=== PATIENT | female | born 1945 | race Hispanic/Latino ===

== ENCOUNTER 2019-02-08 10:51 | Outpatient (CLI) | payer MEDICARE ==
--- NOTE | 2019-02-12 08:30 | PET Report ---
PET/CT:02/08/19 10:51:00 CLINICAL: Breast cancer restaging. RADIOPHARMACEUTICAL: 12.714mCi F18-FDG. COMPARISON: 10/05/18 PET/CT TECHNIQUE- Following intravenous injection of F-18 FDG and an approximately 60 minute uptake period, CT and PET images from the mid skull to the upper thighs were acquired with the patient in the fasted state. No contrast was administered. The CT protocol used for this PET CT study is designed for attenuation correction and anatomic localization of PET abnormalities. This records coordinator CT is not desired to produce and cannot replace, [id number] diagnostic CT scans with specific imaging protocols for different body parts and indications. Plasma glucose at the time of this test: 117g/dl. The standardized uptake values (SUV) are normalized to patient body weight and indicate the highest activity concentration (SUV max) in a given disease site. FINDINGS: Brain--Physiologic FDG uptake in the visualized regions of the brain. Neck--Physiologic FDG uptake mucosal structures. The previously described FDG avid left spinal accessory lymph node measures 1.1 x 0.7 cm additionally the 2.6 compared to 1.4 x 1.0 cm and SUV 5.9. No other cervical lymphadenopathy. Chest--Physiologic FDG uptake in mediastinal blood pool and myocardium. Lungs--Multilobar FDG avid lung nodules have decreased in size with lower SUVs. Pleura/pericardium--No abnormal uptake. Thoracic nodes--No abnormal uptake. Decreased FDG uptake in bilateral hilar lymph nodes. Hepatobiliary--No abnormal uptake. Liver background SUV mean, as a reference for comparing FDG studies, is 4.1 compared to 3.7 on the last exam. No liver mass. Spleen--No abnormal uptake. Pancreas--No abnormal uptake. Adrenal Glands--No abnormal uptake. Kidneys/Ureters/Bladder--No abnormal uptake. Abdominopelvic Nodes--No abnormal uptake. Bowel/Peritoneum/Mesentery--No abnormal uptake. Pelvic organs--No abnormal uptake. Bones/Soft Tissues--Previously described mixed lytic and sclerotic bone lesions demonstrate increased sclerosis and several have become FDG avid. Several new skeletal lesions. The most prominent is at L2 with SUV 5.3. IMPRESSION- Mixed response to therapy with decrease size and decreased FDG uptake in lung nodules and decreased FDG uptake in mediastinal and cervical lymph nodes. However, new FDG uptake in skeletal lesions and several new skeletal lesions. No evidence of hepatic metastasis.
== END 2019-02-08 10:52 | disposition home or self-care (01) ==
LOC: PET 10:51
PROVIDERS: ATTEND Internal Medicine Hematology & Oncology
DX: C50.212 Malignant neoplasm of upper-inner quadrant of left female breast (principal); R59.9 Enlarged lymph nodes, unspecified; R73.09 Other abnormal glucose
CPT/HCPCS: 78815; 82962; A9552

== ENCOUNTER 2019-04-26 12:51 | Observation (INO) | payer MEDICARE ==
--- NOTE | 2019-04-26 13:11 | Emergency Department Report ---
Blank Doc - Documentation Documentation: 73 y o female was sent by PCP for positive blood clot of left lower extremity report pending
[2019-04-26 14:53] LABS: Hematocrit 35.2 % (30.3-42.9); Hemoglobin 12.1 gm/dl (10.1-14.3); Mean Corpuscular HGB Conc 34 % (30-34); Mean Corpuscular Volume 103 fl (79-97); Platelet Count 361 K/mm3 (140-440); Red Blood Count 3.43 M/mm3 (3.65-5.03); Red Cell Distribution Width 14.2 % (13.2-15.2)
[2019-04-26 15:04] LABS: BUN/Creatinine Ratio 11; Blood Urea Nitrogen 8 mg/dL (7-17); Calcium 8.5 mg/dL (8.4-10.2); Hemolysis Index 10
[2019-04-26 15:05] LABS: INR 1.01 (0.87-1.13)
[2019-04-26 15:06] LABS: Partial Thromboplastin Time 24.5 Sec. (24.2-36.6)
[2019-04-26 15:49] LABS: Total Cells Counted 100
[2019-04-26 15:50] LABS: Anisocytosis 1+; Ovalocytes Few; Tear Drop Cells Few
--- NOTE | 2019-04-26 16:06 | History and Physical Report ---
History of Present Illness Chief complaint: My leg in swollen History of present illness: 73 YO Female with HTN, Metastatic Breast Cancer presents to ED for evaluation. Pt states that she has experienced swelling in her left leg over the past 3 weeks, with persistent symptoms over the same time frame. Pt was seen and evaluated by her Dr. Baxter and sent to vascular lab for an outpatient study. Pt seen and evaluated and found to have evidence of extensive LLE DVT. Pt transported to [facility] via private vehicle. Pt seen and evaluated in ED and initiated on therapeutic anticoagulation. IR consulted in ED for evaluation for possible placement of IVC filter. Pt denies fever, chills, CP, Palpitations, NVD, Trauma, Prolonged travel/immobility, individual/family history of DVT/PE/Bleeding/Blood Clotting Disorders, hemoptysis, productive cough, skin rash or recent ill contacts. No prior admission for review. All listed m edication reconciled at time of admission. Past History Past Medical History: cancer, hypertension Past Surgical History: mastectomy Social history: . denies: smoking, alcohol abuse, prescription drug abuse Family history: no significant family history, other (reviewed) Medications and Allergies Allergies Allergy/AdvReac Type Severity Reaction Status Date / Time codeine AdvReac Nausea Verified 04/26/19 16:26 Review of Systems Constitutional: no weight loss, no weight gain, no fever, no chills Ears, nose, mouth and throat: no ear pain, no ear discharge, no tinnitis, no decreased hearing, no nose pain, no nasal congestion Breasts: no change in shape, no swelling, no mass Cardiovascular: no chest pain, no orthopnea, no palpitations, no rapid/irregular heart beat, no edema, no syncope, no lightheadedness Respiratory: no cough, no cough with sputum, no excessive sputum, no hemoptysis, no shortness of breath, no dyspnea on exertion Gastrointestinal: no abdominal pain, no nausea, no vomiting, no diarrhea, no constipation, no change in bowel habits, no hematemesis Genitourinary Female: no pelvic pain, no flank pain, no menorrhagia, no dysuria, no urinary frequency, no urgency, no stress incontinence, no incomplete emptying Rectal: no pain, no incontinence, no bleeding Musculoskeletal: other (Left calf swelling), no neck stiffness, no low back pain, no shooting leg pain, no redness of joints Integumentary: no rash, no pruritis, no redness, no sores, no wounds Neurological: no transient paralysis, no paralysis, no weakness, no parathesias, no tingling, no seizures, no syncope, no tremors Psychiatric: no anxiety, no memory loss, no change in sleep habits, no sleep disturbances, no hypersomnia, no change in appetite, no suicidal ideation, no disorientation Endocrine: no cold intolerance, no heat intolerance, no polyphagia, no polydipsia, no polyuria Hematologic/Lymphatic: no easy bruising, no easy bleeding Allergic/Immunologic: no urticaria, no allergic rhinitis, no wheezing Exam - Constitutional Vitals: Temp Pulse Resp BP Pulse Ox 80 16 123/67 99 04/26/19 15:14 04/26/19 15:14 04/26/19 15:08 04/26/19 15:08 General appearance: Present: no acute distress, well-nourished - EENT Eyes: Present: PERRL ENT: hearing intact, clear oral mucosa - Neck Neck: Present: supple, normal ROM - Respiratory Respiratory effort: normal Respiratory: bilateral: CTA - Cardiovascular Heart Sounds: Present: S1 & S2. Absent: rub, click - Extremities Extremities: pulses symmetrical Extremity abnormal: edema, tenderness, other (LLE edema, tenderness,) Peripheral Pulses: within normal limits - Abdominal General gastrointestinal: Present: soft, non-tender, non-distended, normal bowel sounds Female genitourinary: Present: normal - Integumentary Integumentary: Present: clear, warm, dry - Musculoskeletal Musculoskeletal: gait normal, strength equal bilaterally - Psychiatric Psychiatric: appropriate mood/affect, intact judgment & insight - Neurologic Neurologic: CNII-XII intact, moves all extremities Results - Labs CBC & Chem 7: 04/26/19 14:35 04/26/19 14:35 Labs: Abnormal lab results 04/26/19 04/26/19 Range/Units 14:35 14:35 WBC 2.8 L (4.5-11.0) K/mm3 RBC 3.43 L (3.65-5.03) M/mm3 MCV 103 H (79-97) fl MCH 35 H (28-32) pg Monocytes % (Manual) 10.0 H (0.0-7.3) % Basophils % (Manual) 2.0 H (0.0-1.8) % Seg Neutrophils # Man 1.7 L (1.8-7.7) K/mm3 Lymphocytes # (Manual) 0.7 L (1.2-5.4) K/mm3 Glucose 111 H (65-100) mg/dL Assessment and Plan - Patient Problems (1) Deep vein thrombosis (DVT) of left lower extremity Current Visit: Yes Status: Acute Qualifiers: Chronicity: acute Plan to address problem: Therapeutic anticoagualtion with eliquis first dose in ED, pain control, IR consulted regarding IVC Filter placement, (2) Breast cancer Current Visit: Yes Status: Acute Qualifiers: Laterality: unspecified laterality Plan to address problem: Oncology F/U as outpatient, present on admission (3) HTN (hypertension) Current Visit: Yes Status: Acute Qualifiers: Hypertension type: essential hypertension Qualified Code(s): I10 - Essential (primary) hypertension Plan to address problem: Monitor bp q shift, continue medical management. (4) DVT prophylaxis Current Visit: Yes Status: Acute Plan to address problem: therapeutic anticoagulation, hold scd to leg edema and pain.
[2019-04-26] MEDS ORDERED: TYLENOL PO PRN (16:07)
[2019-04-26] MEDS ORDERED: ZOFRAN IV PRN (16:07)
[2019-04-26] MEDS ORDERED: PROVENTIL IH PRN (16:07)
[2019-04-26] MEDS ORDERED: SODIUM CHLORIDE FLUSH SYRINGE 10 ML IV PRN (16:07)
--- NOTE | 2019-04-26 16:09 | Emergency Department Report ---
ED Lower Extremity HPI - General Chief Complaint: Extremity Problem,Nontraumatic Stated Complaint: L LEG EXTREMITY Time Seen by Provider: 04/26/19 13:03 Source: patient Mode of arrival: Ambulatory Limitations: No Limitations - History of Present Illness Initial Comments: Mrs. Venegas is a very pleasant 73 -year-old female with history of metastatic cancer and hypertension who presents with left leg swelling and pain for several weeks. She was sent from vascular lab. Preliminary review by stopperer assembler found DVT. I spoke with radiologist who gave me the report of extensive DVT from superficial femoral vein to calf. Also spoke with provider Ana from oncology office of Dr. Baxter. Mrs. Venegas presents chest pain and shortness of breath. Currently not Anticoagulation. She did recently have a brief course of anticoagulation after tumor resection from right leg in September. MD Complaint: other (left leg pain) Injury: Leg: Left Place: home Severity: mild Improves With: immobilization - Related Data Allergies Allergy/AdvReac Type Severity Reaction Status Date / Time codeine AdvReac Nausea Unverified 10/05/18 08:13 ED Review of Systems ROS: Stated complaint: L LEG EXTREMITY Other details as noted in HPI Comment: All other systems reviewed and negative Constitutional: denies: fever, malaise Respiratory: denies: cough, shortness of breath Cardiovascular: denies: chest pain ED Past Medical Hx - Past Medical History Previous Medical History?: Yes Additional medical history: Breast CA - Surgical History Past Surgical History?: Yes Additional Surgical History: double mastectomy - Social History Smoking Status: Former Smoker Substance Use Type: None ED Physical Exam - General Limitations: No Limitations General appearance: alert, in no apparent distress - Head Head exam: Present: atraumatic, normocephalic - Eye Eye exam: Present: normal appearance - ENT ENT exam: Present: mucous membranes moist - Neck Neck exam: Present: normal inspection, full ROM - Respiratory Respiratory exam: Present: normal lung sounds bilaterally. Absent: respiratory distress, wheezes, rales, rhonchi - Cardiovascular Cardiovascular Exam: Present: regular rate, normal rhythm, normal heart sounds. Absent: systolic murmur, diastolic murmur, rubs, gallop - GI/Abdominal GI/Abdominal exam: Present: soft, normal bowel sounds. Absent: distended, tenderness, guarding, rebound - Extremities Exam Extremities exam: Present: other (left leg slightly edematous, slightly larger than the right lower extremity, intact pedal pulses, no erythema, normal skin color) - Neurological Exam Neurological exam: Present: alert, oriented X3 - Psychiatric Psychiatric exam: Present: normal affect, normal mood - Skin Skin exam: Present: warm, dry, intact, normal color. Absent: rash ED Course Vital Signs 04/26/19 04/26/19 15:08 15:14 Pulse Rate 80 Respiratory 16 Rate Blood Pressure 123/67 O2 Sat by Pulse 99 Oximetry ED Lower Extremity MDM - Lab Data Result diagrams: 04/26/19 14:35 04/26/19 14:35 - Radiology Data Radiology results: report reviewed Left deep venous thrombosis, extensive from the superficial femoral vein to calf - Medical Decision Making Left deep venous thrombosis: I discussed case with our hospitalist staff. My colleaguerecommended hospitalization for therapeutic anticoagulation and consultation for IVC filter placement. Admitted in stable condition. I have also consulted with patient's personal oncologist service. Critical care attestation.: If time is entered above; I have spent that time in minutes in the direct care of this critically ill patient, excluding procedure time. ED Disposition Clinical Impression: Deep venous thrombosis of femoral vein, Acute deep vein thrombosis Disposition: OP ADMIT IP TO THIS HOSP Is pt being admited?: Yes Does the pt Need Aspirin: No Condition: Stable
[2019-04-26] MEDS: ELIQUIS PO SCH ×2 (17:13→22:18)
[2019-04-26] MEDS: SODIUM CHLORIDE FLUSH SYRINGE 10 ML IV SCH (22:20)
[2019-04-27 06:16] LABS: Hematocrit 29.9 % (30.3-42.9); Hemoglobin 10.8 gm/dl (10.1-14.3); Mean Corpuscular HGB Conc 36 % (30-34); Mean Corpuscular Volume 103 fl (79-97); Platelet Count 297 K/mm3 (140-440)
[2019-04-27 06:37] LABS: Alanine Aminotransferase 12 units/L (7-56); Albumin 3.6 g/dL (3.9-5); BUN/Creatinine Ratio 14; Blood Urea Nitrogen 10 mg/dL (7-17); Calcium 8.5 mg/dL (8.4-10.2); Hemolysis Index 4
[2019-04-27 07:18] LABS: RBC Morphology Normal; Total Cells Counted 100
[2019-04-27] MEDS: SODIUM CHLORIDE FLUSH SYRINGE 10 ML IV SCH (09:59)
[2019-04-27] MEDS: ELIQUIS PO SCH (09:59)
--- NOTE | 2019-04-27 14:27 | Consultation ---
History of Present Illness - Reason for Consult Consult date: 04/27/19 LLE DVT - History of Present Illness 73 YO Female with HTN, Metastatic Breast Cancer presents to ED for evaluation. Pt states that she has experienced swelling in her left leg over the past 3 weeks, with persistent symptoms over the same time frame. Pt was seen and evaluated by her Dr. Baxter and sent to vascular lab for an outpatient study. Pt seen and evaluated and found to have evidence of extensive LLE DVT. Pt transp orted to [facility] via private vehicle. Pt seen and evaluated in ED and initiated on therapeutic anticoagulation. IR consulted in ED for evaluation for possible placement of IVC filter. Pt denies fever, chills, CP, Palpitations, NVD, Trauma, Prolonged travel/immobility, individual/family history of DVT/PE/Bleeding/Blood Clotting Disorders, hemoptysis, productive cough, skin rash or recent ill contacts. No prior admission for review. All listed medication reconciled at time of admission. The patient reports swelling to the left lower extremity for the last 2-3 weeks with some mild discomfort in her calf. No evidence of foot ischemia. No precipitating causes. Patient does have advanced breast cancer. Palpable pedal pulses. No signs of foot ischemia. Mild left lower extremity edema. Past History Past Medical History: cancer, hypertension Past Surgical History: mastectomy Social history: . denies: smoking, alcohol abuse, prescription drug abuse Family history: no significant family history, other (reviewed) Medications and Allergies Allergies Allergy/AdvReac Type Severity Reaction Status Date / Time codeine AdvReac Nausea Verified 04/26/19 16:26 Home Medications Medication Instructions Recorded Confirmed Last Taken Type Cholecalciferol (Vitamin D3) 5,000 unit PO DAILY 04/26/19 04/26/19 04/25/19 History [Vitamin D3 5,000 UNIT] DULoxetine [Cymbalta] 30 mg PO QDAY 04/26/19 04/26/19 04/25/19 History Levothyroxine [Synthroid] 75 mcg PO QAM 04/26/19 04/26/19 04/25/19 History Losartan [Cozaar] 100 mg PO QDAY 04/26/19 04/26/19 04/25/19 History New Site-3S/Dha/Epa/Fish Oil [New Site-3 1 each PO DAILY 04/26/19 04/26/19 04/25/19 History Fish Oil 1,000 mg Sfgl] Palbociclib [Ibrance] 125 mg PO DAILY 04/26/19 04/26/19 04/26/19 22:25 History Palbociclib [Ibrance] 125 mg PO QDAY 04/26/19 04/26/19 04/25/19 History Turmeric/Turmeric Ext/Pepr Ext 1 each PO DAILY 04/26/19 04/26/19 04/25/19 History [[facility] Turmeric Complex 500 mg] Apixaban [Eliquis] 5 mg PO Q12HR #60 tablet 04/27/19 Unknown Rx Apixaban [Eliquis] 10 mg PO Q12HR #12 tablet 04/27/19 Unknown Rx Active Meds: Active Medications Acetaminophen (Tylenol) 650 mg PO Q4H PRN PRN Reason: Pain MILD(1-3)/Fever >100.5/KNUTSON Albuterol (Proventil) 2.5 mg IH Q4HRT PRN PRN Reason: Shortness Of Breath Apixaban (Eliquis) 10 mg PO Q12HR LEEROY; Protocol Stop: 05/02/19 22:01 Last Admin: 04/27/19 09:59 Dose: 10 mg Documented by: Apixaban (Eliquis) 5 mg PO Q12HR LEEROY Miscellaneous Medication (Ibrance) 125 mg PO DIRECT LEEROY Ondansetron HCl (Zofran) 4 mg IV Q8H PRN PRN Reason: Nausea And Vomiting Sodium Chloride (Sodium Chloride Flush Syringe 10 Ml) 10 ml IV BID LEEROY Last Admin: 04/27/19 09:59 Dose: 10 ml Documented by: Sodium Chloride (Sodium Chloride Flush Syringe 10 Ml) 10 ml IV PRN PRN PRN Reason: LINE FLUSH Review of Systems All systems: negative (see HPI) Exam - Constitutional Vitals: Temp Pulse Resp BP Pulse Ox 98.0 F 80 20 115/48 98 04/27/19 07:16 04/27/19 07:16 04/27/19 07:16 04/27/19 07:16 04/27/19 08:58 General appearance: Present: no acute distress - EENT Eyes: Present: EOM intact ENT: hearing intact - Respiratory Respiratory effort: normal - Extremities Extremities: pulses intact, normal temperature, normal color Extremity abnormal: edema (LLE, 1+) Peripheral Pulses: within normal limits - Abdominal General gastrointestinal: Present: soft - Psychiatric Psychiatric: appropriate mood/affect, cooperative Results - Labs CBC & Chem 7: 04/27/19 04:58 04/27/19 04:58 Labs: Abnormal lab results 04/26/19 04/26/19 04/27/19 Range/Units 14:35 14:35 04:58 WBC 2.8 L 2.3 L (4.5-11.0) K/mm3 RBC 3.43 L 2.90 L (3.65-5.03) M/mm3 Hct 29.9 L (30.3-42.9) % MCV 103 H 103 H (79-97) fl MCH 35 H 37 H (28-32) pg MCHC 36 H (30-34) % Monocytes % (Manual) 10.0 H (0.0-7.3) % Basophils % (Manual) 2.0 H 2.0 H (0.0-1.8) % Seg Neutrophils # Man 1.7 L 1.4 L (1.8-7.7) K/mm3 Lymphocytes # (Manual) 0.7 L 0.6 L (1.2-5.4) K/mm3 Sodium (137-145) mmol/L Chloride (98-107) mmol/L Glucose 111 H (65-100) mg/dL Total Protein (6.3-8.2) g/dL Albumin (3.9-5) g/dL 04/27/19 Range/Units 04:58 WBC (4.5-11.0) K/mm3 RBC (3.65-5.03) M/mm3 Hct (30.3-42.9) % MCV (79-97) fl MCH (28-32) pg MCHC (30-34) % Monocytes % (Manual) (0.0-7.3) % Basophils % (Manual) (0.0-1.8) % Seg Neutrophils # Man (1.8-7.7) K/mm3 Lymphocytes # (Manual) (1.2-5.4) K/mm3 Sodium 148 H (137-145) mmol/L Chloride 109.6 H (98-107) mmol/L Glucose 116 H (65-100) mg/dL Total Protein 6.1 L (6.3-8.2) g/dL Albumin 3.6 L (3.9-5) g/dL - Imaging and Cardiology Venous US: report reviewed, image reviewed Assessment and Plan 73-year-old female with metastatic breast cancer with spontaneous left lower extremity DVT. DVT is causing only mild symptoms. The DVT does not extend into the common femoral vein or higher, but it does extend into the superficial femoral vein. No indication for IVC filter. Patient is not a fall risk. No inability to anticoagulate. Recommend anticoagulation for life given spontaneous DVT with underlying malignancy. Anticoagulation has historically been with Lovenox for underlying malignancy. There is some data to suggest Eliquis is not inferior to Lovenox. Discussed this with Dr. Baxter and with the patient and everyone would prefer not to use a injectable medication for life. Therefore, recommend Eliquis for life. Proper use discussed with patient. Follow-up as outpatient.
--- NOTE | 2019-04-27 14:36 | Discharge Summary ---
Providers - Providers Date of Admission: 04/26/19 16:07 Date of discharge: 04/27/19 Attending physician: JOZEF ROSE 04/26/19 16:26 Consult to Interventional Radiology [CONS] Routine Consulting Provider: NATTY GAMEZ Reason For Exam: Extensive LLE DVT Comment:: Possible IVC Filter placement Primary care physician: ARMIN BUNDY Hospitalization Condition: Stable Hospital course: 73 YO Female with HTN, Metastatic Breast Cancer presents to ED for evaluation of swelling in her left leg over the past 3 weeks. Pt was seen and evaluated by her Dr. Viera and sent to vascular lab for an outpatient study and found to have evidence of extensive LLE DVT. Pt transported to [facility] via private vehicle and initiated on therapeutic anticoagulation in the ER. IR consulted in ED for evaluation for possible placement of IVC filter, but both IR and Dr Viera agreed that she does not need IVC filter and was discharged home in stable condition with eliquis to f/u with DR Viera outpt. Discharge diagnosis: (1) Deep vein thrombosis (DVT) of left lower extremity, POA Therapeutic anticoagualtion with eliquis first dose in ED, no need for ivc filter will f/u with dr Viera outpt (2) Metastatic Breast cancer Oncology F/U as outpatient, present on admission (3) HTN (hypertension), stable (4) obesity, outpt f/u Disposition: DC-01 TO HOME OR SELFCARE Time spent for discharge: 34 minutes Core Measure Documentation - Palliative Care Palliative Care/ Comfort Measures: Not Applicable - Core Measures Any of the following diagnoses?: none Exam - Constitutional Vitals: Temp Pulse Resp BP Pulse Ox 98.0 F 84 20 115/48 99 04/27/19 07:16 04/27/19 13:26 04/27/19 07:16 04/27/19 07:16 04/27/19 13:26 General appearance: Present: no acute distress, obese - EENT Eyes: Present: PERRL ENT: hearing intact, clear oral mucosa - Neck Neck: Present: supple, normal ROM - Respiratory Respiratory effort: normal Respiratory: bilateral: CTA - Cardiovascular Heart Sounds: Present: S1 & S2. Absent: rub, click - Extremities Extremities: pulses symmetrical, No edema Peripheral Pulses: within normal limits - Abdominal General gastrointestinal: Present: soft, non-tender, non-distended, normal bowel sounds - Integumentary Integumentary: Present: clear, warm, dry - Musculoskeletal Musculoskeletal: gait normal, strength equal bilaterally - Psychiatric Psychiatric: appropriate mood/affect, intact judgment & insight - Neurologic Neurologic: CNII-XII intact, moves all extremities Plan Activity: advance as tolerated Weight Bearing Status: Weight Bear as Tolerated Diet: advance as tolerated Follow up with: ARMIN BUNDY MD [Primary Care Provider] - 7 Days ARELIS VIERA MD [Staff Physician] - 7 Days Prescriptions: Apixaban [Eliquis] 5 mg PO Q12HR #60 tablet Apixaban [Eliquis] 10 mg PO Q12HR #12 tablet
[2019-04-27 14:45] VITALS: BP 141/65
[2019-04-27] MEDS ORDERED: IBRANCE 125 MG PO SCH (22:00)
[2019-05-03] MEDS ORDERED: ELIQUIS PO SCH (10:00)
== END 2019-04-27 17:33 | disposition home or self-care (01) ==
LOC: ED 12:51 → 2B-ACE 16:07
PROVIDERS: ADMIT Internal Medicine; ATTEND Internal Medicine
DX: I82.402 Acute embolism and thrombosis of unspecified deep veins of left lower extremity (principal); I10 Essential (primary) hypertension; E66.9 Obesity, unspecified; C79.81 Secondary malignant neoplasm of breast; Z90.12 Acquired absence of left breast and nipple
CPT/HCPCS: 36415; 80048; 80053; 85007; 85025; 85610; 85730; 99284; G0378; 82962; A9552; J2405

== ENCOUNTER 2019-08-09 11:46 | Outpatient (CLI) | payer MEDICARE ==
--- NOTE | 2019-08-09 16:12 | PET Report ---
PET/CT HISTORY: C50.212. Restaging of the left breast cancer TECHNIQUE: The patient's fasting blood glucose was 120. The patient weighed 172 lbs. The patient w as injected with 15.2 mCi of FDG in the right antecubital fossa at 57 hours and imaging was started a t 1345 hours. The patient was imaged from the skull base to the thighs. All CT scans at this [facility] are performed using CT dose reduction for ALARA by means of automated exposure control. Images were reviewed on a workstation. COMPARISON: 04/26/2019 FINDINGS: IMAGED BRAIN: [Physiologic FDG uptake] NECK: [No cervical mass or adenopathy is identified. A 2 cm hypodensity in the right thyroid lobe de monstrates a max SUV of 9.8 as opposed to 10.2 on the previous exam. The significance of this thyroid density is unclear.] CHEST WALL: [Physiologic FDG uptake]. No recurrent chest wall mass. Bilateral breast prostheses are intact. MEDIASTINUM: [Physiologic FDG uptake] LUNGS: [Physiologic FDG uptake]. Scattered bilateral small pulmonary densities are stable in size an d number and remain hypometabolic. HEPATOBILIARY: [Physiologic FDG uptake]. Liver SUV measures 4.9. PANCREAS: [Physiologic FDG uptake SPLEEN: [Physiologic FDG uptake] KIDNEYS/BLADDER: [Physiologic FDG uptake]. Multiple left renal cysts are stable. ADRENAL GLANDS: [Physiologic FDG uptake] GI/MESENTERY: [Physiologic FDG uptake] PELVIC VISCERA: [Physiologic FDG uptake] LYMPH NODES: [Physiologic FDG uptake] OSSEOUS STRUCTURES: [Multiple sclerotic bony lesions are identified throughout the spine, ribs and p marli which appear stable in size and number although some of the bony lesions are demonstrating new or increased metabolic activity since the previous exam. For instance, A T2 lesion now demonstrates a max SUV of 5.7. The T9 lesion demonstrates a max SUV of 9.3 as opposed to 8.6 on the previous exam. Subtle uptake in the right side of T10 demonstrates a max SUV of 5.8. Uptake in L2 demonstrates an S UV of 5.1. Uptake in L4 demonstrates a max SUV of 4.7. Uptake in the central sacrum demonstrates a ma x SUV of 5.9 as opposed to 3.9 on the previous exam. ADDITIONAL FINDINGS: [None] IMPRESSION: Mild progression of disease is suspected since 04/26/2019. There are multiple sclerotic bony lesions throughout the axial skeleton which demonstrate new or increased metabolic activity since the previou s examination. Please see above. Hypometabolic pulmonary densities are stable in size and number. No evidence for hepatic or ruddy disease. Persistent uptake in a 2 cm right thyroid nodule which is thought to be nonneoplastic. Signer Name: Remington Modi Jr, MD Signed: 08/09/2019 4:08 PM Workstation Name: [id number]
== END 2019-08-09 11:47 | disposition home or self-care (01) ==
LOC: PET 11:46
PROVIDERS: ATTEND Internal Medicine Hematology & Oncology
DX: C50.212 Malignant neoplasm of upper-inner quadrant of left female breast (principal); I10 Essential (primary) hypertension; E03.9 Hypothyroidism, unspecified; M19.90 Unspecified osteoarthritis, unspecified site; Z87.891 Personal history of nicotine dependence; R73.09 Other abnormal glucose
CPT/HCPCS: 78815; 82962; A9552